=== PATIENT | male | born 1990 | race Caucasian/White ===

== ENCOUNTER 2024-12-22 16:24 | Emergency (ER) | payer OTHER ==
[~2024-12-22] VITALS: Ht 188 cm; Wt 88.5 kg
[2024-12-22 16:32] VITALS: O2SAT 99
[2024-12-22] MEDS ORDERED: SULF1TAB48 MT (20:52)
[2024-12-22] MEDS ORDERED: OCUFLX EACHEYE (20:52)
[2024-12-22] MEDS ORDERED: AMOX500T2 MT (20:52)
[2024-12-22 21:26] VITALS: BP 124/85; PULSE 89; RESP 18; TEMP 36.7; O2SAT 99
== END 2024-12-22 21:27 | disposition home or self-care (01) ==
LOC: ER 16:24
DX: L03.213 Periorbital cellulitis (principal); Z79.899 Other long term (current) drug therapy
CPT/HCPCS: 99283